=== PATIENT | male | born 1990 | race Caucasian/White ===

== ENCOUNTER 2017-04-24 22:25 | Emergency (ER) | payer BC ==
[2017-04-24 22:31] VITALS: RESP 16; O2SAT 96
[2017-04-25] MEDS ORDERED: CEPHALEXIN 500 MG CAP PO ONE (01:18)
[2017-04-25] MEDS ORDERED: CEPHALEXIN 500MG PREPACK#4 BTL TAKEHOME ONE (01:18)
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
[2017-04-25 01:36] VITALS: BP 125/71; PULSE 60; TEMP 98.1
== END 2017-04-25 01:36 | disposition home or self-care (01) ==
PROC: 0HQBXZZ Repair Right Upper Arm Skin, External Approach (ICD-10-PCS; principal; 2017-04-24)
DX: S51.011A Laceration without foreign body of right elbow, initial encounter (principal); V18.0XXA Pedal cycle driver injured in noncollision transport accident in nontraffic accident, initial encounter; Y92.89 Other specified places as the place of occurrence of the external cause; Y99.8 Other external cause status; Y93.55 Activity, bike riding
CPT/HCPCS: A4565

== ENCOUNTER 2017-10-26 14:35 | Inpatient (IN) | payer BC, OTHER ==
[2017-10-26] MEDS ORDERED: HYDROmorphONE/DILAUDID 1 MG/ML INJ IVP ONE ×3 (14:48→17:50)
[2017-10-26] MEDS ORDERED: IOPAMIDOL (ISOVUE 370) 100 ML BTL IV ONE (14:50)
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
[2017-10-26] MEDS ORDERED: NS 1,000 ML IV ONE (15:34)
[2017-10-26] MEDS ORDERED: GADOBUTROL 10 ML VIAL IVP ONE (15:56)
[2017-10-26] MEDS ORDERED: ONDANSETRON 4 MG/2 ML VIAL IVP PRN (16:26)
[2017-10-26] MEDS ORDERED: ONDANSETRON DISINTEGRATING 4 MG TAB PO PRN (16:26)
[2017-10-26] MEDS ORDERED: IBUPROFEN 600 MG TAB PO PRN (16:26)
[2017-10-26] MEDS ORDERED: NALOXONE HCL 0.4 MG/ML INJ IVP PRN (16:26)
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
[2017-10-26] MEDS: HYDROCODONE/APAP 5/325 TAB PO PRN (20:11)
[2017-10-26] MEDS: NEFAZODONE PO SCH (20:11)
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
[2017-10-27] MEDS: ENOXAPARIN 40 MG/0.4 ML SYR SC SCH ×3 (08:08→09:42)
[2017-10-27] MEDS: HYDROCODONE/APAP 5/325 TAB PO PRN ×4 (08:09→22:17)
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
[2017-10-27] MEDS ORDERED: LITHIUM CARBONATE ER 300 MG TAB PO SCH (09:00)
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
--- NOTE | 2017-10-27 20:06 | SOAPPROG ---
SOAP Progress Note Assessment/Plan: Assessment: Tertiary exam completed today with Zhanna LARA[see her note] Complain of some discomfort in his left ribs HEENT negative for any major trauma findings Chest symmetrical breath sounds tender left ribs Cor regular rhythm Abdomen soft nontender with active bowel sounds Extremities full range of motion full pulses Neuro exam physiologic and symmetric Chest tube was made minimal drainage and no air leak Patient encouraged to ambulate Plan: DC chest tube in the a.m. if chest x-ray well expanded and no air leak 10/27/17 20:03 Objective: Vital Signs Temp Pulse Resp BP Pulse Ox 36.8 C 72 18 141/68 H 97 10/27/17 19:20 10/27/17 19:20 10/27/17 19:20 10/27/17 19:20 10/27/17 19:20 10/26/17 10/27/17 10/28/17 05:59 05:59 05:59 Intake Total 700 2000 Output Total 700 85 Balance 0 1915 ICD10 Worksheet Patient Problems: Problems Problem Status Onset Abrasion Acute Cervical spinal cord injury Acute Closed left clavicular fracture Acute Left pulmonary contusion Acute Pneumothorax, left Acute Rib fracture Acute
[2017-10-27] MEDS: NEFAZODONE PO SCH (22:17)
[2017-10-28] MEDS: ENOXAPARIN 40 MG/0.4 ML SYR SC SCH (08:40)
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
[2017-10-28] MEDS: ACETAMINOPHEN 325 MG TAB PO PRN ×3 (09:18→21:20)
[2017-10-28 11:24] VITALS: RESP 16
[2017-10-28] MEDS: NEFAZODONE PO SCH (20:02)
[2017-10-28] MEDS ORDERED: LITHIUM CARBONATE ER 300 MG TAB PO SCH (21:00)
[2017-10-29] MEDS: ACETAMINOPHEN 325 MG TAB PO PRN (08:10)
[2017-10-29] MEDS: ENOXAPARIN 40 MG/0.4 ML SYR SC SCH (08:12)
[2017-10-29] MEDS ORDERED: FLU VACC QS 2017-18 (3YR+)/PF 0.5 ML SYR (FLUARIX QUAD) IM ONE (08:13)
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
[2017-10-29] MEDS ORDERED: BISACODYL 10 MG SUPP PR PRN (08:26)
[2017-10-29] MEDS ORDERED: LACTULOSE 20 GM/30 ML UDCUP PO PRN (08:26)
[2017-10-29] MEDS ORDERED: MAGNESIUM HYDROXIDE 30 ML UDCUP PO PRN (08:26)
[2017-10-29] MEDS ORDERED: POLYETHYLENE GLYCOL 3350 17 GM PKT PO PRN (08:26)
[2017-10-29 08:43] VITALS: BP 132/82; PULSE 69; TEMP 98.3; O2SAT 96
[2017-10-29] MEDS ORDERED: SENNOSIDES/DOCUSATE SODIUM TAB PO SCH (09:00)
[2017-10-29] MEDS ORDERED: NYSTATIN POWDER 15 GM BTL TP SCH (09:00)
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
== END 2017-10-29 10:36 | disposition home or self-care (01) | DRG 200 ==
LOC: OBSVTOIN 17:40 → F3N 18:13
PROVIDERS: ADMIT Surgery; ATTEND Surgery
PROC: 0W9B30Z Drainage of Left Pleural Cavity with Drainage Device, Percutaneous Approach (ICD-10-PCS; principal; 2017-10-26)
DX: S27.0XXA Traumatic pneumothorax, initial encounter (principal); S22.42XA Multiple fractures of ribs, left side, initial encounter for closed fracture; S27.321A Contusion of lung, unilateral, initial encounter; S42.025A Nondisplaced fracture of shaft of left clavicle, initial encounter for closed fracture; V18.0XXA Pedal cycle driver injured in noncollision transport accident in nontraffic accident, initial encounter; Y93.55 Activity, bike riding; Y92.830 Public park as the place of occurrence of the external cause; F41.8 Other specified anxiety disorders; Z23 Encounter for immunization
CPT/HCPCS: 82947-QW; 92523-GN; 96374; 97116-GP; 97162-GP; 97165-GO; 97530-GP; A9585; G0008; J1170; J1650; J2405; Q9967

== ENCOUNTER 2017-11-04 14:02 | Day surgery (SDC) | payer OTHER ==
[~2017-11-04 14:02] MED LIST changes: -BUPIVACAINE/EPI 0.5% 30 ML SDV ONE; +ceFAZolin 2 GM/SWFI 2 GM/20 ML SYR IVP ONE
--- NOTE | 2017-11-04 14:27 | PDHPUP ---
History & Physical Update H&P update statement: This history and physical update is based on an assessment of the patient which was completed after admission or registration (within 24 hours), but prior to the surgery/procedure.
[2017-11-04] MEDS ORDERED: ceFAZolin 2 GM/SWFI 20 ML SYR IVP ONE (14:40)
[2017-11-04] MEDS ORDERED: LR 1,000 ML IV ONE (14:47)
[2017-11-04] MEDS ORDERED: MIDAZOLAM 2 MG/2 ML VIAL ONE (14:48)
[2017-11-04] MEDS ORDERED: KETOROLAC 30 MG/1 ML SDV ONE (14:49)
[2017-11-04] MEDS ORDERED: METOCLOPRAMIDE 10 MG/2 ML VIAL ONE (14:49)
[2017-11-04] MEDS ORDERED: PROPOFOL 200 MG/20 ML VIAL ONE (14:49)
[2017-11-04] MEDS ORDERED: LIDOCAINE 2% 100 MG/5 ML SYR ONE (14:49)
[2017-11-04] MEDS ORDERED: DEXAMETHASONE 4 MG/ML VIAL ONE ×2 (14:49)
[2017-11-04] MEDS ORDERED: fentaNYL 100 MCG/2 ML INJ ONE ×2 (14:49→15:23)
--- NOTE | 2017-11-04 15:17 | PDANEPAE ---
ANE Past Medical History - Cardiovascular History Hx Hypertension: No Hx Arrhythmias: No Hx Chest Pain: No Hx Coronary Artery / Peripheral Vascular Disease: No Hx CHF / Valvular Disease: No Hx Palpitations: No - Pulmonary History Hx COPD: No Hx Asthma/Reactive Airway Disease: No Hx Recent Upper Respiratory Infection: No Hx Oxygen in Use at Home: No Hx Sleep Apnea: No Sleep Apnea Screening Result - Last Documented: Negative - Neurologic History Hx Cerebrovascular Accident: No Hx Seizures: No Hx Dementia: No - Endocrine History Hx Diabetes: No - Renal History Hx Renal Disorders: No - Liver History Hx Hepatic Disorders: No - Neurological & Psychiatric Hx Hx Neurological and Psychiatric Disorders: Yes Neurological / Psychiatric History Comment: depression, bipolar - Cancer History Hx Cancer: No - Congenital Disorder History Hx Congenital Disorders: No - GI History Hx Gastrointestinal Disorders: No - Chronic Pain History Chronic Pain: No - Surgical History Prior Surgeries: right collarbone repair ANE Review of Systems Review of Systems: - Exercise capacity METS (RN): 6 METS ANE Patient History - Allergies Allergies/Adverse Reactions: deet Allergy (Uncoded 10/26/17 16:26) Hives - Home Medications Home Medications: [place] Carbonate ER [Lithobid 300 mg (*)] 11/19/14 [Last Taken 10/25/17] Nefazodone [[place] 150mg (*)] 04/24/17 [Last Taken 10/25/17] Acetaminophen [Tylenol 325mg (*)] 11/03/17 [Last Taken Unknown] Hydrocodone/APAP 5/325 [[place] 5/325 (*)] 11/03/17 [Last Taken Unknown] Ibuprofen [Motrin (*)] 11/03/17 [Last Taken Unknown] Sennosides/Docusate Sodium [Senokot-S] 11/03/17 [Last Taken Unknown] - NPO status NPO Since - Liquids (Date): 11/04/17 NPO Since - Liquids (Time): 08:30 NPO Since - Solids (Date): 11/03/17 NPO Since - Solids (Time): 21:00 - Smoking Hx Smoking Status: Never smoked - Family Anes Hx Family Hx Anesthesia Complications: No ANE Labs/Vital Signs - Vital Signs Blood Pressure: 131/78 Heart Rate: 80 Respiratory Rate: 18 O2 Sat (%): 95 Height: 190.5 cm Weight: 83.915 kg ANE Physical Exam - Airway Neck exam: FROM Mallampati Score: Class 1 Mouth exam: normal dental/mouth exam - Pulmonary Pulmonary: no respiratory distress - Cardiovascular Cardiovascular: regular rate and rhythym - ASA Status ASA Status: II ANE Anesthesia Plan Anesthesia Plan: GA w LMA
--- NOTE | 2017-11-04 16:29 | POSTOPPROG ---
Post Op Note Date of Operation: 11/04/17 Surgeon: Marcin Loja Rental Sales Agent: Mary Anesthesiologist: Reji Anesthesia: GET(General Endotracheal) Pre-op Diagnosis: L clavicle fracture Post-op Diagnosis: same Indication: above Procedure: L clavicle orif Inf/Abcess present in the surg proc area at time of surgery?: No EBL: 50-100
[2017-11-04] MEDS ORDERED: fentaNYL 100 MCG/2 ML INJ IVP PRN (16:32)
[2017-11-04] MEDS ORDERED: HYDROCODONE/APAP 5/325 TAB PO PRN (16:32)
[2017-11-04] MEDS ORDERED: NALOXONE HCL 0.4 MG/ML INJ IVP PRN (16:32)
[2017-11-04] MEDS ORDERED: ALBUTEROL 3 ML DEYVIAL IH PRN (16:32)
[2017-11-04] MEDS ORDERED: MEPERIDINE 25 MG/ML SYR IVP PRN (16:32)
[2017-11-04] MEDS ORDERED: HYDROmorphONE/DILAUDID 1 MG/ML INJ IVP PRN (16:32)
[2017-11-04] MEDS ORDERED: OXYCODONE/APAP 5/325 TAB PO PRN (16:32)
[2017-11-04] MEDS ORDERED: ONDANSETRON 4 MG/2 ML VIAL IVP PRN (16:32)
[2017-11-04] MEDS ORDERED: ACETAMINOPHEN 500 MG TAB PO PRN (16:32)
--- NOTE | 2017-11-04 16:42 | POSTANESTH ---
Post Anesthetic Evaluation Cardiovascular Status: Similar to Pre-Op Cond Respiratory Status: Similar to Pre-op Cond. Level of Consciousness/Mental Status: Mildly Sleepy, Arousable Pain Control: Adequate, Prn Tx Ordered Nausea/Vomiting Control: Adequate, Prn Tx Ordered Complications Possibly Related to Anesthesia: None Noted
[2017-11-04 18:27] VITALS: BP 125/72; PULSE 69; RESP 16; TEMP 97.5; O2SAT 96
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
== END 2017-11-04 18:22 | disposition home or self-care (01) ==
LOC: FSGY 14:02
PROVIDERS: ATTEND Orthopaedic Surgery
PROC: BP15ZZZ Fluoroscopy of Left Clavicle (ICD-10-PCS; 2017-11-04)
PROC: 0PSB04Z Reposition Left Clavicle with Internal Fixation Device, Open Approach (ICD-10-PCS; principal; 2017-11-04 15:15)
DX: S42.022A Displaced fracture of shaft of left clavicle, initial encounter for closed fracture (principal); S27.0XXA Traumatic pneumothorax, initial encounter; S22.42XA Multiple fractures of ribs, left side, initial encounter for closed fracture; S27.321A Contusion of lung, unilateral, initial encounter; V18.0XXA Pedal cycle driver injured in noncollision transport accident in nontraffic accident, initial encounter; Y93.55 Activity, bike riding; Y92.9 Unspecified place or not applicable; F31.9 Bipolar disorder, unspecified
CPT/HCPCS: C1713; C1769; J0690; J1100; J1885; J2001; J2250; J2704; J2765; J3010

== ENCOUNTER → 2017-11-04 | Outpatient (CLI) | payer OTHER ==
[~2017-11-04] MED LIST: BUPIVACAINE/EPI 0.5% 30 ML SDV ONE
== END ==
LOC: FIMAGING 09:37 → EDSTATUS 09:39
PROVIDERS: ATTEND Surgery
DX: J93.9 Pneumothorax, unspecified (principal)

== ENCOUNTER 2018-03-21 20:16 | Emergency (ER) | payer OTHER ==
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
[2018-03-21 21:35] VITALS: BP 148/78
== END 2018-03-21 21:38 | disposition home or self-care (01) ==
PROC: 0HQLXZZ Repair Left Lower Leg Skin, External Approach (ICD-10-PCS; principal; 2018-03-21)
DX: S81.012A Laceration without foreign body, left knee, initial encounter (principal); V18.4XXA Pedal cycle driver injured in noncollision transport accident in traffic accident, initial encounter; Y92.410 Unspecified street and highway as the place of occurrence of the external cause; Y99.8 Other external cause status; Y93.55 Activity, bike riding

== ENCOUNTER 2018-08-04 13:28 | Emergency (ER) | payer OTHER ==
[2018-08-04 13:34] VITALS: BP 145/92
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
== END 2018-08-04 15:00 | disposition home or self-care (01) ==
DX: S49.92XA Unspecified injury of left shoulder and upper arm, initial encounter (principal); Z87.81 Personal history of (healed) traumatic fracture; V18.0XXA Pedal cycle driver injured in noncollision transport accident in nontraffic accident, initial encounter; Y93.55 Activity, bike riding; Y92.9 Unspecified place or not applicable; Y99.9 Unspecified external cause status